=== PATIENT | female | born 1980 | race Hispanic/Latino ===

== ENCOUNTER 2017-05-11 05:33 | Inpatient (IN) | payer OTHER ==
[2017-05-10 09:38] VITALS: BMI 22.2
--- NOTE | 2017-05-11 06:02 | HP ---
DATE OF ADMISSION: 05/11/2017 CHIEF COMPLAINT: Menorrhagia to anemia. HISTORY OF PRESENT ILLNESS: This is a 37-year-old G5, P5 with prolonged heavy menses, transfusion in 01/19/2017, hemoglobin of 6.5, has been on oral contraceptives without great relief of her menorrhagia; however, no intermenstrual bleeding or spotting. She has minimal pain; however, large uterine fibroids on transvaginal ultrasound that showed a uterus measuring a 11.3 x 7.7, multiple fibroids, the largest being fundal measuring 5.5 x 6.2, anteriorly 2.8 x 2.7, and posteriorly 2.2 x 2 cm. The patient has been dispositioned for hysterectomy after counseling on treatment options secondary to medical management and continued significant anemia, recent hemoglobin is 7.4 and has been on iron twice daily. PAST MEDICAL HISTORY: Denies. PAST SURGICAL HISTORY: Appendectomy and tubal ligation. OB HISTORY: G5, P5, x5 including 9.5-pound baby. GYNECOLOGIC HISTORY: History of HPV, negative Pap recently on 10/2016. No STDs. SOCIAL HISTORY: Negative x3. Currently incarcerated. FAMILY HISTORY: Negative CURRENT MEDICATIONS: Oral contraceptives and Ferrous sulfate 325mg BID. ALLERGIES: NKDA PHYSICAL EXAMINATION: VITAL SIGNS: On the date of 05/07/2017, blood pressure was 118/62, pulse was 92 , respirations 18, weight 129, height 63 inches, BMI is 22.9 in chart. GENERAL: No acute distress, alert and oriented x3. CARDIAC: Regular rate and rhythm. LUNGS: Clear to auscultation bilaterally. ABDOMEN: Soft, nontender, nondistended with lower abdominal pelvic mass. EXTREMITIES: No edema, cyanosis or clubbing. PELVIC: Deferred to the OR. ASSESSMENT AND PLAN: This is a 37-year-old P5 with uterine fibroids and menorrhagia to anemia, unresponsive to medical management. We did surgery including hysterectomy with bilateral salpingectomy, discussed ovarian retention and plan for transfusion of 1 unit of packed red cells in the a.m. to surgery and to follow the patient's blood counts thereafter. However, we will likely transfuse second unit in order for a surgical healing and the patient benefits. I have discussed other risks including infection, damage to surrounding structures including bowel, bladder, ureter, blood vessels, nerves and conversion to open procedure. The patient voices understanding and wishes to proceed. [facility]
[2017-05-11] MEDS ORDERED: CEFAZOLIN/Water 2 GM/20 ML SYRINGE ONE (06:14)
[2017-05-11] MEDS ORDERED: Bupivacaine PF 0.5% 30 ML VIAL ONE (06:26)
[2017-05-11 06:48] LABS: Anion Gap 12 mmol/L (10-20); BUN (Urea Nitrogen) 11 mg/dL (7.0-18.7); Calc. Creatinine Clearance 114 mL/min (70-130); Calcium 8.5 mg/dL (7.8-10.44); Carbon Dioxide 22 mmol/L (22-29); Chloride 107 mmol/L (98-107); Estimated GFR-MDRD Greater than 90
[2017-05-11 07:09] LABS: #Basophils 0.1 thou/uL (0.0-0.2); #Lymphocytes 1.3 thou/uL (1.20-3.40); #Monocytes 0.3 thou/uL (0.11-0.59); #Neutrophils 1.7 thou/uL (1.40-6.50); %Basophils 1.7 % (0.0-1.0); %Eosinophils 0.8 % (0.0-10.0); %Lymphocytes 37.9 % (21.0-51.0); %Monocytes 9.4 % (0.0-10.0); Hematocrit 23.5 % (36.0-47.0); Mean Platelet Volume 8.3 fL (7.4-10.4); Red Blood Cell (RBC) Count 3.39 mill/uL (4.20-5.40); White Blood Cell (WBC) Count 3.3 thou/uL (4.8-10.8)
[2017-05-11] MEDS ORDERED: Morphine 10 MG/ML VIAL ONE (07:20)
[2017-05-11] MEDS ORDERED: Fentanyl 100 MCG/2 ML VIAL ONE ×2 (07:20→10:31)
[2017-05-11] MEDS ORDERED: Midazolam HCl 2 mg/2 ml Vial ONE (07:20)
[2017-05-11 07:53] LABS: Hypochromia MODERATE=16-30 cells (100X) (0-5/hpf); Microcytosis MODERATE=15-30 cells (100X) (0-5/hpf); Ovalocytes MODERATE= 6-15 cells (100X) (0-1/hpf); Polychromasia MODERATE = 3-4 cells (100X) (0-2/hpf)
[2017-05-11] MEDS ORDERED: Promethazine HCl 25 MG/ML VIAL IM PRN ×2 (10:05→10:07)
[2017-05-11] MEDS ORDERED: Promethazine HCl 25 MG/ML VIAL SLOW IVP PRN (10:05)
[2017-05-11] MEDS ORDERED: Ondansetron HCl/PF 4 MG/2 ML Vial IVP PRN ×2 (10:05→15:21)
[2017-05-11] MEDS ORDERED: Morphine 2 MG/ML SYRINGE SLOW IVP PRN (10:07)
[2017-05-11] MEDS ORDERED: diphenhydrAMINE 25 MG CAP PO PRN (10:07)
[2017-05-11] MEDS ORDERED: Bisacodyl 10 MG SUPP PR PRN (10:07)
[2017-05-11] MEDS ORDERED: Acetaminophen 325 MG TAB PO PRN (10:07)
[2017-05-11] MEDS ORDERED: Acetaminophen/Codeine 30-300mg Tablet PO PRN (10:07)
--- NOTE | 2017-05-11 11:14 | OP ---
DATE OF OPERATION: 05/11/2017 PREOPERATIVE DIAGNOSES: 1. Uterine fibroids. 2. Menorrhagia to anemia. 3. Pelvic pain. POSTOPERATIVE DIAGNOSES: 1. Uterine fibroids. 2. Menorrhagia to anemia. 3. Pelvic pain. PROCEDURES: Robotic assisted total laparoscopic hysterectomy, bilateral salpingectomy with extracor poral morcellation. ESTIMATED BLOOD LOSS: 50 mL. URINE OUTPUT: 150 mL of clear urine. FLUID IN: 250 mL of PRBCs and 1 liter of crystalloid. SURGEON: Maida Solano M.D. [employer] OPERATOR: Tao Macias M.D. ANESTHESIA: General endotracheal. COMPLICATIONS: None. DRAINS: Brown catheter. PATHOLOGY: Uterus, cervix, and bilateral fallopian tubes. FINDINGS: On exam under anesthesia, mobile 16-week size uterus with multiple fibroids. The uterus sounded to 14 cm and the fallopian tubes and ovaries were normal bilaterally. There was a normal up per abdominal survey as well. OPERATIVE TECHNIQUE: The patient was taken to the operating room where general anesthesia was obtai dulce without difficulty. The patient was prepped and draped in a sterile fashion in the dorsolithoto my position. A Brown catheter was placed in the bladder. Speculum placed in the vagina. The anter ior lip of the cervix was grasped with a single tooth tenaculum and the uterus was sounded. The erin rine manipulator was assembled with 12 cm tip and a 4 cm colpotomizer ring. The cervix was dilated and the manipulator tip was inserted to the uterine fundus, balloon was inflated. Instruments were removed out of the vagina and the colpotomizer was advanced snugly around the cervix and the vaginal occluder balloon was inflated. Legs were placed in low lithotomy. Attention was turned to the abd omen. Approximately 3 cm superior to the umbilicus was infiltrated with 0.5% Marcaine and a 12 mm s kin incision was made. The Veress needle was passed into the abdomen noting an opening pressure of 3 mmHg. Pneumoperitoneum was obtained without difficulty and 12 mm trocar was then passed into the abdomen confirming placement with the robotic camera. Steep Trendelenburg was obtained. The right and left lower quadrant 8 mm robotic trocars were placed under direct visualization after infiltrati ng with 0.5% Marcaine. The right upper quadrant sugar laboratory assistant port was 11 mm was inserted under direct visualization after infiltrated with anesthetic without difficulty. The robot was undocked. The ro botic arms contained monopolar scissors, left robotic arms contained a fenestrated bipolar. Uterus manipulated easily and was anteverted and the right fallopian tube was grasped and elevated. A wind ow was made in the mesosalpinx, cauterizing the vessels and transecting. The fallopian tube was the n clamped across and cauterized, transected, and removed out of the abdomen. The utero-ovarian was cauterized multiple times and transected and taken down to the level of the round ligament that was cauterized in the midportion and transected. The anterior leaf of the broad ligament was also opene d up, undermining with the fenestrated bipolar to ensure a clear window down to the level of the jitendra dder flap. The retroperitoneal hazy fibers were then taken down with monopolar scissors and posteri or leaf of the broad ligament was dropped down to the level of the uterosacral ligaments and vessels were skeletonized on the right side and cauterized. Attention was turned to the patient's left galdino e where the fallopian tube was grasped and elevated and the mesosalpinx was cauterized and transecte d sequentially until the uterine cornua was met. The fallopian tube was then clamped across cautery , transected and removed out the body. The uteroovarian was cauterized multiple times and transecte d as well as the round ligament in the midportion. This was transected and the anterior leaf of the broad ligament opened up down to the level of the bladder flap. The bladder flap was then further developed easily noting the vesicouterine peritoneum, this was incised with scissors and the reticul ar fibers were then taken down with the monopolar scissors as well as blunt dissection with the back end of the scissors. The posterior leaf of the broad ligament was dropped down to the level of the uterosacral and the vessels were skeletonized on the right with the scissors. After adequate skele tonization, the vessels were cauterized on top of the colpotomizer ring and transected and taken anshu n below the level of the colpotomizer ring with the scissors. The vessels on the right side were th en again cauterized and transected dissecting that pedicle down below the colpotomizer as well. Ant erior colpotomy was performed and carried around to the lateral apices where the fenestrated bipolar was clipped underneath and cauterized with adequate hemostasis. The posterior colpotomy was then c ompleted and the uterus was completely transected. The uterine manipulator was removed out of the u terus. The uterus was placed in the upper abdomen. The Carlos morcellator bag was then introduced through the vagina into the upper abdomen and the monopolar scissors were switched out for the needl e six horse hitch driver. The cuff was then irrigated and cauterized of any bleeders and then it was repaired with 2-0 Stratafix barbed suture in a running fashion incorporating posterior peritoneum and vaginal muco sa on each bite with excellent closure and hemostasis was noted. Copious irrigation of the pelvis w as performed. Excellent hemostasis was noted. A low pressure check was performed again noting hemo stasis. At that time, the bag was brought down into the pelvis as well as the uterine specimen and this was balanced on top of the bag and the silks sutures that were used to collapse the back were c ut and uterus was then delivered into the bag easily. The silk suture was removed out of the abdome n and the bag was taken out of the sugar laboratory assistant port and pulled taut noting that the specimen was maint ained inside the bag. The robot was undocked and all instruments were removed out of the abdomen. The umbilical port was then extended to approximately 3 cm as well as the fascial incision. The med ium Carlos was then introduced into the abdomen and the bag was removed out of the central umbilical port. At that that time, the Carlos was removed out of the incision and placed on the inside of th e bag after the bag had been delivered through that medial incision. At that time, morcellation was performed with the scalpel grasping the tissue. Initially, the cervix with Laure clamps and a C. i ncision technique was used to perform this for solution in a same manner removing the specimen in it s entirety. This took approximately an additional 20 minutes and following this, the Carlos retract or as well as the back was removed out of the abdomen. Hemostasis was achieved of this umbilical in cision as there was some bleeding superficially with the Bovie. The fascia was identified and reapp roximated with an 0 Vicryl in a running fashion with excellent reapproximation. The incisions were irrigated and the skin was closed with 4-0 Monocryl in a subcuticular fashion and Dermabond was appl ied to each of the port incisions. The remainder of the anesthetic 0.5% Marcaine was then infiltrat ed into the umbilical incision. The vaginal cuff was checked and noted to have excellent closure an d no active bleeding. All instruments were removed out of the vagina. The patient tolerated the pr ocedure well. Sponge, lap, and needle counts were correct x2. The patient was taken to recovery ro in stable condition. Patient received Ancef 2 grams prior to procedure.
[2017-05-11] MEDS: Lactated Ringer's 1,000 ML IV SCH (12:18)
[2017-05-11] MEDS ORDERED: Ondansetron HCl/PF 4 MG/2 ML Vial ONE (14:50)
[2017-05-11] MEDS ORDERED: Ketorolac Tromethamine 30 MG/ML VIAL ONE (14:50)
[2017-05-11] MEDS ORDERED: Propofol 200 MG/20 ML VIAL ONE (14:50)
[2017-05-11] MEDS ORDERED: Lidocaine 1% PF 5 ML VIAL ONE (14:50)
[2017-05-11] MEDS: Ketorolac Tromethamine 30 MG/ML VIAL IVP SCH ×2 (16:00→21:44)
[2017-05-11 17:19] LABS: Hematocrit 28.6 % (36.0-47.0)
[2017-05-11] MEDS: Docusate (Surfak) 240 MG CAP PO SCH (21:43)
[2017-05-11] MEDS: Simethicone Chewable 80 MG TAB PO PRN (21:43)
[2017-05-11] MEDS: Zolpidem Tartrate 5 MG TAB PO PRN (21:44)
[2017-05-11] MEDS: Acetaminophen/Codeine 30-300mg Tablet PO PRN (21:44)
[2017-05-12 05:59] LABS: Hematocrit 24.5 % (36.0-47.0); Mean Platelet Volume 9.6 fL (7.4-10.4); Red Blood Cell (RBC) Count 3.26 mill/uL (4.20-5.40); White Blood Cell (WBC) Count 5.1 thou/uL (4.8-10.8)
[2017-05-12] MEDS: Ketorolac Tromethamine 30 MG/ML VIAL IVP SCH ×2 (06:02→08:15)
[2017-05-12] MEDS: Lactated Ringer's 1,000 ML IV SCH (06:03)
[2017-05-12] MEDS: Simethicone Chewable 80 MG TAB PO PRN (06:07)
[2017-05-12] MEDS: Acetaminophen/Codeine 30-300mg Tablet PO PRN ×4 (08:14→21:17)
[2017-05-12] MEDS: Docusate (Surfak) 240 MG CAP PO SCH ×2 (08:14→21:52)
[2017-05-12] MEDS ORDERED: Ibuprofen 800 MG TAB PO SCH (09:45)
[2017-05-12] MEDS: Ibuprofen 800 MG TAB PO SCH ×2 (13:40→21:52)
--- NOTE | 2017-05-12 18:55 | PRG ---
DATE OF SERVICE: 05/12/2017 TIME: Approximately 9:00 a.m. SUBJECTIVE: The patient has no complaints this morning. She states that her pain is well controlle d and has tolerated Tylenol #3 as well as scheduled Toradol. She states that she has ambulated and voided x1 without difficulty. She is tolerating a regular diet. Denies any weakness, shortness of breath, palpitations or dizziness. OBJECTIVE: VITAL SIGNS: Pulse has ranged from 70-109 has been at the upper end of normal or slightly tachycard ic, respirations 20, temperature 98.0, blood pressure 87/57. Ins and outs 850/4100, balance -3250. GENERAL: No acute distress, alert and oriented x3. CARDIAC: Slightly tachycardic with regular rhythm. CHEST: Clear to auscultation bilaterally. ABDOMEN: Soft, appropriately tender, nondistended. Bowel sounds are positive. Incisions are clean , dry and intact. EXTREMITIES: No edema, cyanosis or clubbing. LABORATORY DATA: Hemoglobin is 7.5, hematocrit 24.5 and platelets are 152. ASSESSMENT: A 37-year-old status post robotic-assisted hysterectomy, bilateral salpingectomy and mo rcellation. The patient had been slightly tachycardic intermittently; however, denies symptoms of a nemia. Currently, she is status post 1 unit of packed red cells yesterday preoperatively secondary to chronic anemia from menorrhagia. We will allow the patient to ambulate and further evaluate puls es as well as symptoms of anemia and will consider transfusion of a additional unit. Patient will c ontinue p.o. pain meds and routine advances and will be discharged back to the [facility] here they will provide her with pain meds. No discharge prescriptions. The patient will continue h er home meds and she should follow up with me in 2 weeks postoperative time.
[2017-05-12] MEDS: Zolpidem Tartrate 5 MG TAB PO PRN (21:52)
[2017-05-13] MEDS: Ibuprofen 800 MG TAB PO SCH (06:10)
[2017-05-13] MEDS: Acetaminophen/Codeine 30-300mg Tablet PO PRN (06:12)
[2017-05-13 06:44] LABS: Hematocrit 28.3 % (36.0-47.0)
[2017-05-13] MEDS: Docusate (Surfak) 240 MG CAP PO SCH (10:27)
[2017-05-13 11:22] VITALS: BP 96/56; TEMP 98.2
--- NOTE | 2017-05-14 06:24 | DIS ---
DATE OF ADMISSION: 05/11/2017 DATE OF DISCHARGE: 05/13/2017 ADMISSION DIAGNOSES: 1. Menorrhagia. 2. Anemia. 3. Pelvic pain. 4. Uterine fibroids. DISCHARGE DIAGNOSES: 1. Status post robotic assisted total laparoscopic hysterectomy, bilateral salpingectomy and extrac orporeal morcellation. 2. Anemia, asymptomatic. DISCHARGE CONDITION: Stable. ATTENDING PHYSICIAN: Maida Solano M.D. CONSULTATIONS: None. PROCEDURES: The patient underwent uncomplicated robotic assisted total laparoscopic hysterectomy an d bilateral salpingectomy with extracorporeal morcellation. She also underwent transfusion of 2 uni ts of packed red blood cells. HISTORY AND PHYSICAL EXAMINATION: Please see previously dictated H\T\P. HOSPITAL COURSE: A 37-year-old presented to undergo the scheduled hysterectomy secondary to her com plaints unresolved with medical management. She had an uncomplicated surgery with 50 mL of blood lo ss. Her preoperative hemoglobin was 7.0 and she was transfused 1 unit prior to going to the OR. Po stoperatively, her hemoglobin trended up to 7.5 on the day after surgery; however, the patient remai dulce slightly tachycardic and did experience some weakness with ambulation. Therefore, she was dispo sitioned for transfusion of 1 additional unit of packed red cells for symptomatic anemia. She met o ther milestones appropriately including tolerating regular diet, voiding without difficulty and pain being controlled on Tylenol #3 and ibuprofen. After transfusion, her vital signs remained within n ormal limits and she was dispositioned for discharge on postoperative day #2. She will follow up [facility] in 2 weeks postoperative time and [facility] she will c ontinue Tylenol #3 and ibuprofen and iron as well. Her final pathology is benign.
--- NOTE | 2017-05-14 06:33 | PRG ---
DATE OF SERVICE: 05/13/2017 The patient is feeling well. Pain is well controlled. No dizziness, shortness of breath, palpitati ons or weakness. She is ambulating without difficulty and voiding without difficulty. No vaginal b leeding. OBJECTIVE: VITAL SIGNS: Blood pressure 96/56, pulse 77, respirations 18, temperature 98.2. GENERAL: No acute distress. CARDIAC: Regular rate and rhythm. LUNGS: Clear to auscultation bilaterally. ABDOMEN: Soft, appropriately tender, nondistended. Bowel sounds positive. Incision is clean, dry, and intact. EXTREMITIES: No edema, cyanosis or clubbing. ASSESSMENT AND PLAN: A 37-year-old status post robotic assisted total laparoscopic hysterectomy, bi lateral salpingectomy and extracorporeal morcellation. Hospital course has been uncomplicated. The patient was severely anemic on admission secondary to m enorrhagia despite being treated with oral iron b.i.d. She has received 2 units of PRBCs with approp riate rise in blood counts, this morning is hemoglobin of 8.6, hematocrit 28.3. The patient has no symptoms of anemia. She will continue her iron on discharge. She should also continue the Tylenol No. 3 and ibuprofen 800mg and possibly a stool softener to prevent constipation postoperatively. S he should follow up with me in 2 weeks postoperative time. Final pathology is benign.
== END 2017-05-13 13:48 | DRG 743 ==
LOC: SURG A 05:33 → 3SE 11:22
PROVIDERS: ADMIT Student in an Organized Health Care Education/Training Program; ATTEND Student in an Organized Health Care Education/Training Program
PROC: 0UT94ZZ Resection of Uterus, Percutaneous Endoscopic Approach (ICD-10-PCS; principal; 2017-05-11)
PROC: 0UTC4ZZ Resection of Cervix, Percutaneous Endoscopic Approach (ICD-10-PCS; 2017-05-11)
PROC: 0UT74ZZ Resection of Bilateral Fallopian Tubes, Percutaneous Endoscopic Approach (ICD-10-PCS; 2017-05-11)
PROC: 8E0W4CZ Robotic Assisted Procedure of Trunk Region, Percutaneous Endoscopic Approach (ICD-10-PCS; 2017-05-11)
PROC: 30233N1 Transfusion of Nonautologous Red Blood Cells into Peripheral Vein, Percutaneous Approach (ICD-10-PCS; 2017-05-11)
PROC: 30233N1 Transfusion of Nonautologous Red Blood Cells into Peripheral Vein, Percutaneous Approach (ICD-10-PCS; 2017-05-12)
DX: D25.9 Leiomyoma of uterus, unspecified (principal); D50.0 Iron deficiency anemia secondary to blood loss (chronic); N92.0 Excessive and frequent menstruation with regular cycle; Z98.51 Tubal ligation status
CPT/HCPCS: 36415; 36430; 80048; 85014; 85018; 85025; 85027; 85060; 86850; 86900; 86901; 88307; A4216; J1885; J2001; J2250; J2270; J2405; J2550; J2704; J3010; P9016; S0020